=== PATIENT | male | born 1950 | race Two or more races ===

== ENCOUNTER 2021-04-10 06:32 | Inpatient (IN) | payer MEDICAID ==
[~2021-04-10] VITALS: Ht 160 cm; Wt 69.4 kg
[2021-04-10] MEDS ORDERED: FUROSEMIDE 40MG/4ML VIAL IVP ONE (09:00)
[2021-04-10 09:56] LABS: BG BASE EXCESS 1.6 mmol/L (-2.0-2.0); BG CARBOXYHEMOGLOBIN 0.2 % (0.5-1.5); BG DEOXYHEMOGLOBIN 1.8 % (0.0-5.0); BG FRACTION INSPIRED OXYGEN 50; BG HCO3 ACT 25.5 mmol/L (22.0-26.0); BG METHEMOGLOBIN 0.2 % (0.0-1.5); BG OXYGEN SATURATION 98.2 % (92.0-98.5); BG OXYHEMOGLOBIN 97.8 % (94.0-97.0); BG PCO2 37.4 mmHg (35.0-45.0); BG PH 7.452 (7.350-7.450); BG PO2 129.4 mmHg (75.0-100.0); BG SAMPLE SITE LEFT RADIAL; BG TOTAL HEMOGLOBIN 10.7 g/dL (12.0-18.0); BG TOTAL RESPIRATORY RATE 24 b/min; BG VENT MODE MASK - BIPAP
[2021-04-10 10:14] LABS: HEMATOCRIT. 32.3 % (42.0-52.0); HEMOGLOBIN. 10.6 g/dL (14.0-18.0); MEAN CORPUSCULAR VOLUME 88.5 fL (80.0-94.0); MEAN PLATELET VOLUME 8.6 fl (7.4-10.4); PLATELET 309 x1000/uL (130-400); RED BLOOD CELL COUNT 3.65 mill/uL (4.7-6.1); RED CELL DISTRIBUTION WIDTH 15.6 % (11.6-14.6)
[2021-04-10 10:15] LABS: CHLORIDE 102 mEq/L (98-107)
[2021-04-10 10:45] LABS: PLATELET ESTIMATE NORMAL
[2021-04-10] MEDS ORDERED: MAGNESIUM/ALUMINUM HYDROXIDE/SIMETHICONE 30ML UDC PO PRN (11:30)
[2021-04-10] MEDS ORDERED: ONDANSETRON HCL 4MG/2ML INJ IV PRN (11:30)
[2021-04-10] MEDS ORDERED: NITROGLYCERIN 0.4MG TABLET SL SL PRN (11:30)
[2021-04-10] MEDS ORDERED: CLONIDINE 0.1MG TABLET PO PRN (11:30)
[2021-04-10] MEDS ORDERED: GUAIFENESIN 200MG/10ML SUGAR FREE UDC PO PRN (11:30)
[2021-04-10] MEDS ORDERED: ACETAMINOPHEN 325MG TABLET PO PRN ×2 (11:30)
[2021-04-10] MEDS ORDERED: ZOLPIDEM TARTRATE 5MG TABLET PO PRN (11:30)
[2021-04-10] MEDS ORDERED: DOCUSATE SODIUM 100MG CAPSULE PO PRN (11:30)
[2021-04-10] MEDS: ASPIRIN 325MG EC TABLET PO SCH (13:35)
[2021-04-10] MEDS: FAMOTIDINE 20MG TABLET PO SCH (13:35)
[2021-04-10] MEDS: ENOXAPARIN 40MG/0.4ML SYR SUBCUT SCH (13:37)
[2021-04-10 13:54] LABS: *AMPHETAMINES SCREEN URINE NEGATIVE (NEGATIVE); *BARBITURATES SCREEN URINE NEGATIVE (NEGATIVE); *BENZODIAZEPINES SCREEN URINE NEGATIVE (NEGATIVE); *COCAINE SCREEN URINE NEGATIVE (NEGATIVE)
[2021-04-10 13:56] LABS: METHADONE URINE SCREEN NEGATIVE (NEGATIVE); OPIATES URINE SCREEN NEGATIVE (NEGATIVE); PHENCYCLIDINE URINE SCREEN NEGATIVE (NEGATIVE)
[2021-04-10 13:57] LABS: CANNABINOID URINE SCREEN NEGATIVE (NEGATIVE)
[2021-04-10 15:04] LABS: INR 1.3; PARTIAL THROMBOPLASTIN TIME 28.5 sec (23.4-31.0); PROTHROMBIN TIME 13.7 sec (9.6-11.0)
[2021-04-10 16:28] LABS: T4 FREE 1.09 ng/dL (0.76-1.46)
[2021-04-10 16:30] LABS: FOLIC ACID (FOLATE) SERUM >20 ng/mL ng/mL (>5.38)
[2021-04-10 16:41] LABS: VITAMIN B12 SERUM 485 pg/mL (211-911)
[2021-04-10 17:13] LABS: HEPATITIS B SURFACE ANTIGEN NEGATIVE
[2021-04-10 17:43] LABS: HEPATITIS A AB IGM NEGATIVE (NEGATIVE)
[2021-04-10 19:20] VITALS: BP 101/69
[2021-04-10 20:11] VITALS: BP 101/69
[2021-04-10] MEDS ORDERED: FAMOTIDINE 20MG TABLET PO SCH (21:00)
[2021-04-10] MEDS: SPIRONOLACTONE 25MG TABLET PO SCH (21:00)
[2021-04-10 21:43] VITALS: BP 111/75
[2021-04-10 23:38] VITALS: BP 98/72
[2021-04-10] MEDS: FUROSEMIDE 40MG/4ML VIAL IVP SCH (23:42)
[2021-04-11] VITALS (11 sets, daily range): BP systolic 90–117; BP diastolic 65–79
[2021-04-11 00:27] LABS: CREATINE KINASE MB FRACTION 3.4 ng/mL (0.5-3.6)
[2021-04-11] MEDS: FUROSEMIDE 40MG/4ML VIAL IVP SCH (06:25)
[2021-04-11] MEDS: FAMOTIDINE 20MG TABLET PO SCH (08:37)
[2021-04-11] MEDS: ASPIRIN 325MG EC TABLET PO SCH (08:37)
[2021-04-11] MEDS: ENOXAPARIN 40MG/0.4ML SYR SUBCUT SCH (08:37)
[2021-04-11] MEDS: SPIRONOLACTONE 25MG TABLET PO SCH ×2 (08:38→20:20)
[2021-04-11 09:47] LABS: BASOPHILS % 0.3 % (0.0-2.0); EOSINOPHILS % 0.1 % (0.0-5.0); HEMATOCRIT. 34.4 % (42.0-52.0); HEMOGLOBIN. 10.9 g/dL (14.0-18.0); LYMPHOCYTES % 8.9 % (20.0-50.0); MEAN CORPUSCULAR HEMOGLOBIN 28.9 pg (28.0-32.0); MEAN CORPUSCULAR VOLUME 91.5 fL (80.0-94.0); MEAN PLATELET VOLUME 8.7 fl (7.4-10.4); MONOCYTES % 9.4 % (2.0-8.0); NEUTROPHILS % 81.3 % (40.0-76.0); PLATELET 246 x1000/uL (130-400); RED BLOOD CELL COUNT 3.77 mill/uL (4.7-6.1)
[2021-04-11 09:52] LABS: CHLORIDE 107 mEq/L (98-107)
[2021-04-11 10:01] LABS: PHOSPHORUS 4.7 mg/dL (2.5-4.9)
[2021-04-11 10:02] LABS: LDL CHOLESTEROL 46 mg/dL (5-100)
[2021-04-11 10:06] LABS: HDL CHOLESTEROL 26 mg/dL (40-59)
[2021-04-11] MEDS ORDERED: ATOR-2 PO (11:48)
[2021-04-11] MEDS ORDERED: FAMO20TA8 PO (11:48)
[2021-04-11] MEDS ORDERED: MIDO10TA PO (11:48)
[2021-04-11] MEDS ORDERED: ASPI-1497 MT (11:48)
[2021-04-11] MEDS ORDERED: FURO40TA5 MT (11:48)
[2021-04-11] MEDS ORDERED: FUROSEMIDE 40MG TABLET PO SCH (21:00)
[2021-04-12] VITALS (12 sets, daily range): BP systolic 92–107; BP diastolic 47–70
[2021-04-12 07:46] LABS: BASOPHILS % 0.3 % (0.0-2.0); EOSINOPHILS % 0.3 % (0.0-5.0); HEMATOCRIT. 33.7 % (42.0-52.0); HEMOGLOBIN. 11.1 g/dL (14.0-18.0); LYMPHOCYTES % 9.2 % (20.0-50.0); MEAN CORPUSCULAR HEMOGLOBIN 29.4 pg (28.0-32.0); MEAN CORPUSCULAR VOLUME 89.5 fL (80.0-94.0); MONOCYTES % 7.2 % (2.0-8.0); PLATELET 194 x1000/uL (130-400); RED BLOOD CELL COUNT 3.77 mill/uL (4.7-6.1); RED CELL DISTRIBUTION WIDTH 15.9 % (11.6-14.6)
[2021-04-12] MEDS ORDERED: FUROSEMIDE 40MG/4ML VIAL IVP SCH (09:00)
[2021-04-12] MEDS: MIDODRINE HCL 5MG TABLET PO SCH ×3 (09:30→16:56)
[2021-04-12] MEDS: ENOXAPARIN 40MG/0.4ML SYR SUBCUT SCH (09:30)
[2021-04-12] MEDS: FAMOTIDINE 20MG TABLET PO SCH (09:30)
[2021-04-12] MEDS: ASPIRIN 325MG EC TABLET PO SCH (09:30)
[2021-04-12] MEDS: SPIRONOLACTONE 25MG TABLET PO SCH ×2 (10:30→21:17)
[2021-04-12] MEDS: IPRATROPIUM/ALBUTEROL 0.5-3(2.5)MG/3ML NEB NEB PRN ×2 (11:04→15:08)
[2021-04-12] MEDS: FUROSEMIDE 100MG/10ML VIAL IVP SCH (17:17)
[2021-04-12] MEDS: GUAIFENESIN 600MG ER TABLET PO SCH (21:17)
[2021-04-13] VITALS (12 sets, daily range): BP systolic 91–110; BP diastolic 52–71
[2021-04-13] MEDS: IPRATROPIUM/ALBUTEROL 0.5-3(2.5)MG/3ML NEB HHN SCH ×4 (02:47→20:53)
[2021-04-13] MEDS: FUROSEMIDE 100MG/10ML VIAL IVP SCH ×2 (05:48→18:04)
[2021-04-13 06:28] LABS: BASOPHILS % 0.6 % (0.0-2.0); EOSINOPHILS % 0.9 % (0.0-5.0); HEMATOCRIT. 32.8 % (42.0-52.0); HEMOGLOBIN. 10.6 g/dL (14.0-18.0); LYMPHOCYTES % 11.7 % (20.0-50.0); MEAN CORPUSCULAR HEMOGLOBIN 29.4 pg (28.0-32.0); MEAN CORPUSCULAR VOLUME 90.8 fL (80.0-94.0); MEAN PLATELET VOLUME 8.9 fl (7.4-10.4); MONOCYTES % 8.7 % (2.0-8.0); NEUTROPHILS % 78.1 % (40.0-76.0); PLATELET 189 x1000/uL (130-400); RED BLOOD CELL COUNT 3.61 mill/uL (4.7-6.1); RED CELL DISTRIBUTION WIDTH 16.2 % (11.6-14.6)
[2021-04-13] MEDS: MIDODRINE HCL 5MG TABLET PO SCH ×3 (08:43→18:04)
[2021-04-13] MEDS: ASPIRIN 81MG TABLET PO SCH (08:44)
[2021-04-13] MEDS: ENOXAPARIN 40MG/0.4ML SYR SUBCUT SCH (08:44)
[2021-04-13] MEDS: GUAIFENESIN 600MG ER TABLET PO SCH ×2 (08:44→21:13)
[2021-04-13] MEDS: FAMOTIDINE 20MG TABLET PO SCH (08:44)
[2021-04-13] MEDS: SPIRONOLACTONE 25MG TABLET PO SCH ×2 (08:44→21:00)
[2021-04-14] VITALS (11 sets, daily range): BP systolic 93–112; BP diastolic 52–76
[2021-04-14] MEDS: IPRATROPIUM/ALBUTEROL 0.5-3(2.5)MG/3ML NEB HHN SCH ×2 (01:04→14:04)
[2021-04-14] MEDS: FUROSEMIDE 100MG/10ML VIAL IVP SCH (05:51)
[2021-04-14] MEDS: MIDODRINE HCL 5MG TABLET PO SCH ×3 (09:19→17:37)
[2021-04-14] MEDS: SPIRONOLACTONE 25MG TABLET PO SCH (09:19)
[2021-04-14] MEDS: FAMOTIDINE 20MG TABLET PO SCH (09:20)
[2021-04-14] MEDS: ASPIRIN 81MG TABLET PO SCH (09:20)
[2021-04-14] MEDS: GUAIFENESIN 600MG ER TABLET PO SCH (09:20)
[2021-04-14] MEDS: ENOXAPARIN 40MG/0.4ML SYR SUBCUT SCH (09:20)
[2021-04-14] MEDS ORDERED: FUROSEMIDE 40MG/4ML VIAL IVP SCH (18:00)
== END 2021-04-14 20:16 | disposition home or self-care (01) | DRG 133 ==
LOC: ER 06:32 → 3WST 10:23 → EDBEDREQTM 10:27 → EDBEDREQ 10:27 → ENRESERV 18:14
PROVIDERS: ADMIT Internal Medicine; ATTEND Internal Medicine
PROC: 5A09457 Assistance with Respiratory Ventilation, 24-96 Consecutive Hours, Continuous Positive Airway Pressure (ICD-10-PCS; 2021-04-10)
PROC: 02H633Z Insertion of Infusion Device into Right Atrium, Percutaneous Approach (ICD-10-PCS; 2021-04-10)
PROC: B548ZZA Ultrasonography of Superior Vena Cava, Guidance (ICD-10-PCS; 2021-04-10)
PROC: 5A1D70Z Performance of Urinary Filtration, Intermittent, Less than 6 Hours Per Day (ICD-10-PCS; 2021-04-10)
PROC: 5A1D70Z Performance of Urinary Filtration, Intermittent, Less than 6 Hours Per Day (ICD-10-PCS; 2021-04-11)
PROC: 5A09357 Assistance with Respiratory Ventilation, Less than 24 Consecutive Hours, Continuous Positive Airway Pressure (ICD-10-PCS; principal; 2021-04-12)
DX: J96.01 Acute respiratory failure with hypoxia (principal); N17.0 Acute kidney failure with tubular necrosis; I50.23 Acute on chronic systolic (congestive) heart failure; E44.0 Moderate protein-calorie malnutrition; E83.51 Hypocalcemia; I48.91 Unspecified atrial fibrillation; I69.354 Hemiplegia and hemiparesis following cerebral infarction affecting left non-dominant side; I13.0 Hypertensive heart and chronic kidney disease with heart failure and stage 1 through stage 4 chronic kidney disease, or unspecified chronic kidney disease; E11.22 Type 2 diabetes mellitus with diabetic chronic kidney disease; I25.10 Atherosclerotic heart disease of native coronary artery without angina pectoris; N18.9 Chronic kidney disease, unspecified; E78.5 Hyperlipidemia, unspecified; Z20.822 Contact with and (suspected) exposure to COVID-19; I25.5 Ischemic cardiomyopathy; I25.2 Old myocardial infarction; Z95.1 Presence of aortocoronary bypass graft; Z68.27 Body mass index [BMI] 27.0-27.9, adult
CPT/HCPCS: 36415; 36600; 71045; 76770; 76937; 80048; 80053; 80061; 80305; 82375; 82550; 82553; 82607; 82746; 82805; 83036; 83540; 83550; 83735; 83880; 84100; 84145; 84439; 84443; 84484; 85025; 86705; 86709; 86803; 87340; 87426; 93005; 93306; 93970; 94640; 94660; 97162; 99291; C1752; J1650; J1940